=== PATIENT | male | born 1985 | race Two or more races ===

== ENCOUNTER 2023-10-03 23:52 | Emergency (ER) | payer OTHER, SELFPAY ==
[2023-10-03 23:57] VITALS: BP 186/102; PULSE 75; O2SAT 98
[2023-10-04 00:03] VITALS: BP 152/93; PULSE 75; RESP 18; TEMP 37.2; O2SAT 98; BMI 28.1
[2023-10-04] MEDS: oxyCODONE HCl Immed Release 5 MG TABLET 10 MG PO (00:19)
--- NOTE | 2023-10-04 00:30 | ED_ITS ---
HPI - General Adult General Chief complaint: Eye Problems Stated complaint: burning pain in the eye Time Seen by Provider: 10/04/23 00:02 Source: patient, RN notes reviewed and old records reviewed Mode of arrival: EMS Limitations: no limitations History of Present Illness HPI narrative: 38-year-old male presents for evaluation of bilateral eye pain. Patient reports that his eyes have been burning for the last 5 hours. 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 and the patient was trying to help the friend without using eye protection The patient admits to staring at the light from the wedding process frequently without eye protection About an hour or 2 later he developed itching to both eyes and then started to have burning pain Related Data Previous Rx's ?Medication ?Instructions ?Recorded erythromycin 5 mg/gram (0.5 %) eye 0.5 inch ophthalmic (eye) BID #3.5 10/04/23 ointment grams oxycodone 5 mg tablet 5 mg PO Q4H PRN severe pain (scale 10/04/23 score 7-10) #14 tabs Allergies Allergy/AdvReac Type Severity Reaction Status Date / Time No Known Allergies Allergy Verified 10/04/23 00:06 Review of Systems Constitutional: Constitutional: Denies body ache(s), Denies chills and Denies fever(s) Eyes: Eyes: Reports irritation and Reports eye pain (Severe burning pain) ENT: Denies sore throat Cardiovascular: Cardiovascular: Denies chest pain and Denies dyspnea Respiratory: Respiratory: Denies cough and Denies dyspnea Gastrointestinal: Gastrointestinal: Denies abdominal pain, Denies nausea and Denies vomiting Musculoskeletal: Musculoskeletal: Denies back pain PMFSH Social History Social History Advance Directives: No Advance Directives Information Provided: No Physical Exam ED Vital Signs: Vital Signs - 24 hr 10/04/23 00:03 Temperature 98.9 F Pulse Rate 75 Respiratory Rate 18 Blood Pressure 152/93 H Pulse Oximetry 98 Oxygen Delivery Method Room Air BMI result Body Mass Index 28.1 Const General: healthy appearing, comfortable, no acute distress, alert and awake Nutritional Appearance: well nourished Orientation/consciousness: patient oriented x3 HENMT Head: Yes normocephalic and Yes atraumatic Eyes Visual Aguillon: normal visual aguillon by confrontation Alignment and Position: alignment normal Periorbital: periorbital findings normal Eyelids: Yes eyelids normal Conjunctivae: conjunctival abnormal bilateral conjunctival injection diffuse; Negative for conjunctival icterus and without chemosis Corneas: corneas normal and fluorescein used (No area of increased fluorescein uptake) Pupils: Equal, round and reactive pupils present EOM: EOMs intact bilaterally Direct Ophthalmoscopy: normal light reflex and no papilledema Resp Effort & Inspection: normal respiratory effort, able to speak in complete sentences and not labored Skin General skin exam: elasticity normal Neuro General: patient oriented x3 Cranial nerves: Yes CN's II-XII intact bilaterally, Yes Equal, round and reactive pupils present and Yes Bilaterally intact EOM present Cognition (Neuro): normal cognition Extrem Other: Moving all extremities well without any obvious deformities Medications Administered Discontinued Medications Generic Name Dose Route Start Last Admin Trade Name Freq PRN Reason Stop Dose Admin Fluorescein Sodium 1 strip 10/04/23 00:05 10/04/23 00:36 Fluorescein Sodium Strip EYE-BOTH 10/04/23 00:06 Not Given ONCE ONE Oxycodone HCl 10 mg 10/04/23 00:11 10/04/23 00:19 Oxycodone Hcl Immed Release 5 Mg Tablet PO 10/04/23 00:12 10 mg ONCE ONE Administration Tetracaine HCl 1 drop 10/04/23 00:05 10/04/23 00:36 Tetracaine Hcl 0.5% Oph Amee 5 Ml Drops EYE-BOTH 10/04/23 00:06 Not Given ONCE ONE Medical Decision Making Medical Decision Making MDM Narrative: Presents complaining of severe burning eye pain, 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 His symptoms started an hour or 2 after this. This is most consistent with photo keratitis/corneal flash burn. I discussed with the patient. The importance of using eye protection at all times when around bright lights or welding. I did perform fluorescein staining and the patient has no evidence of corneal abrasion. There was no evidence of papilledema. The patient will be referred to Ophthalmology for follow-up, he was given oral oxycodone and erythromycin ointment to prevent superinfection Differential Diagnosis Differential Diagnoses: The differential diagnosis associated with the presentation includes Photo keratitis Corneal flash burn Conjunctivitis Corneal abrasion Foreign body Discharge Plan Discharge Clinical Impression: Photokeratitis of both eyes Patient Disposition: Home, Self-Care Instructions: Corneal Flash Nice (ED) Additional Instructions: Make sure you are always wearing eye protection when you are near were around somebody that is welding Your symptoms are related to portal keratitis or corneal flash nice. This is caused from looking at bright light without wearing eye protection, such as welding. It is important that you call Ophthalmology, Dr. Sloan tomorrow morning to schedule an appointment for follow-up Use erythromycin ointment twice daily for the next 3 days This will help with your burning pain a little bit but will also prevent superimposed infection You may use ibuprofen/Tylenol for pain Use oxycodone for more severe breakthrough pain This may make you sleepy, do not drink alcohol or drive after taking Prescriptions: New erythromycin 5 mg/gram (0.5 %) ointment 0.5 inch ophthalmic (eye) BID Qty: 3.5 0RF oxycodone 5 mg tablet 5 mg PO Q4H PRN (Reason: severe pain (scale score 7-10)) Qty: 14 0RF Rx Instructions: Partial Fill upon patient request. Referrals: Joshua Sloan [Physician] - (Photokeratitis from welding) Stand Alone Forms: Work/School Release Print Language: Malaysian
== END 2023-10-04 01:24 | disposition home or self-care (01) ==
PROVIDERS: Emergency Provider Emergency Medicine; PCP Internal Medicine
DX: H16.133 Photokeratitis, bilateral (principal); H57.13 Ocular pain, bilateral
CPT/HCPCS: 99282; 99283

== ENCOUNTER 2023-12-13 08:37 | Emergency (ER) | payer OTHER, SELFPAY ==
--- NOTE | ~2023-12-13 | XR_ITS ---
EXAMINATION: XR ANKLE, RIGHT CLINICAL INFORMATION: Question fracture pain fall COMPARISON: None available. TECHNIQUE: AP, lateral, and mortise views of the right ankle. FINDINGS: No acute visible fracture or dislocation. Ankle mortise is symmetric. Joint space alignment are maintained. Small ankle joint effusion. Slight soft tissue prominence along the lateral ankle. XR/XR ankle RT min 3V IMPRESSION: 1. No acute visible fracture or dislocation. 2. Small ankle joint effusion. 3. Slight soft tissue prominence along the lateral ankle.
[2023-12-13 09:00] VITALS: BP 145/90; PULSE 75; RESP 18; TEMP 36.6; O2SAT 98; BMI 27.7
--- NOTE | 2023-12-13 10:17 | ED_ITS ---
HPI - Extremity Injury (Lower) General Chief Complaint: Extremity Injury, Lower Stated Complaint: R ankle injury Time Seen by Provider: 12/13/23 10:02 Source: patient Mode of arrival: ambulatory Limitations: no limitations History of Present Illness ED Provider: Magda Mehta PA-C HPI Narrative: 38 year old male presents to the ER for evaluation of right ankle pain and swelling after he twisted it while walking down the stairs Yesterday at 15:00. He reports he twisted the ankle, has had pain walking on it since. Last night he used warm Epsom salt soak and a wrap so the swelling was better today but the pain was worse. He tried to go to work but was unable to comfortably ambulate on his feet so he came to the ER for evaluation. He reports the pain is radiating from the ankle up into the hip as he has walking with a limp. denies any numbness or tingling in his feet. MD complaint: ankle injury Onset (ago): day(s) (1) Type of Injury: inversion Place: home Severity: moderate Severity scale (1-10): 7 Relieving factors: immobilization and rest Exacerbating factors: weight bearing, movement and palpation Context: walking Associated symptoms: able to partially bear weight Other symptoms: none Treatments prior to arrival: bandage Related Data Previous Rx's ?Medication ?Instructions ?Recorded erythromycin 5 mg/gram (0.5 %) eye 0.5 inch ophthalmic (eye) BID #3.5 10/04/23 ointment grams oxycodone 5 mg tablet 5 mg PO Q4H PRN severe pain (scale 10/04/23 score 7-10) #14 tabs ibuprofen 600 mg tablet 600 mg PO TID PRN pain #20 tabs 12/13/23 Allergies Allergy/AdvReac Type Severity Reaction Status Date / Time No Known Allergies Allergy Verified 12/13/23 09:03 Review of Systems Review of Systems: Yes all other systems are reviewed and are negative PMFSH Social History Social History Advance Directives: No Advance Directives Information Provided: No Physical Exam Vital Signs: Vital Signs: Last Vital Signs Temp 97.9 F 12/13/23 09:00 Pulse 75 12/13/23 09:00 Resp 18 12/13/23 09:00 BP 145/90 H 12/13/23 09:00 Pulse Ox 98 12/13/23 09:00 O2 Del Method Room Air 12/13/23 09:00 BMI result Body Mass Index 27.7 Appearance: Alert. Oriented X3. No acute distress. HEENT: normal inspection CVS: Normal heart rate and rhythm. Pulses normal. Respiratory: No respiratory distress. Skin: Skin warm and dry. Normal skin color. Normal skin turgor. No rashes. Extremities: Mild swelling of the right lateral ankle with tenderness. Limited flexion and dorsiflexion due to pain. No ecchymosis or gross deformities. Foot is warm and well perfused, neurovascular intact. Neuro: Oriented X 3. No motor deficit. No sensory deficit. Slight limp with ambulation Medical Decision Making Medical Decision Making MDM Narrative: 38-year-old male presents to the ER for evaluation of right ankle pain after he twisted it while walking down the stairs yesterday. He has been able to ambulate but with some discomfort. Exam with mild lateral swelling and tenderness, some limited range of motion due to discomfort. X-rays performed does not show any acute fractures. Ankle was placed in Olvin wrap for compression and support, provided crutches per request. We discussed ankle sprain management including rest, ice, elevation and compression. Treatment for pain with Tylenol and ibuprofen. Stable for discharge home. Differential Diagnosis Differential Diagnoses: The differential diagnosis associated with the presentation includes ankle fracture, ankle sprain, ankle strain, ankle contusion Independent Interpretation I performed an independent interpretation of an: Plain X-Ray Interpretation: no appreciated fx, agree w/ read Radiology Impression Discussion of test interpretation with radiology: I have reviewed the radiologist's reading. Radiologist Impression: EXAMINATION: XR ANKLE, RIGHT CLINICAL INFORMATION: Question fracture pain fall COMPARISON: None available. TECHNIQUE: AP, lateral, and mortise views of the right ankle. FINDINGS: No acute visible fracture or dislocation. Ankle mortise is symmetric. Joint space alignment are maintained. Small ankle joint effusion. Slight soft tissue prominence along the lateral ankle. XR/XR ankle RT min 3V IMPRESSION: 1. No acute visible fracture or dislocation. 2. Small ankle joint effusion. 3. Slight soft tissue prominence along the lateral ankle. Prescription Management I considered prescription management with: Pain Medication Critical Care Time Critical Care Time Critical Care Time: No Discharge Plan Discharge Clinical Impression: Ankle sprain and strain Patient Disposition: Home, Self-Care Instructions: Ankle Sprain (DC) Additional Instructions: Your x-ray today did not show any broken bones. Rest your ankle and elevate your foot when possible. Recommend OLVIN wrap for support and compression. Use ice several times per day for the next 48 hours. You may bear weight as tolerated. If pain is too severe, use crutches until better. Take Motrin and/or Tylenol as needed for pain. Follow up with your doctor as needed. Prescriptions: New ibuprofen 600 mg tablet 600 mg PO TID PRN (Reason: pain) Qty: 20 0RF No Action erythromycin 5 mg/gram (0.5 %) ointment 0.5 inch ophthalmic (eye) BID Qty: 3.5 0RF oxycodone 5 mg tablet 5 mg PO Q4H PRN (Reason: severe pain (scale score 7-10)) Qty: 14 0RF Rx Instructions: Partial Fill upon patient request. Stand Alone Forms: Work/School Release Print Language: Greenlandic
[2023-12-13 11:04] VITALS: BP 141/101; PULSE 65; RESP 16; TEMP 37; O2SAT 98
[2023-12-13 11:18] VITALS: BP 141/101; PULSE 65; RESP 16; TEMP 37; O2SAT 98
== END 2023-12-13 11:19 | disposition home or self-care (01) ==
PROVIDERS: Emergency Provider Emergency Medicine
DX: S93.401A Sprain of unspecified ligament of right ankle, initial encounter (principal); S96.911A Strain of unspecified muscle and tendon at ankle and foot level, right foot, initial encounter; X50.1XXA Overexertion from prolonged static or awkward postures, initial encounter; M25.471 Effusion, right ankle; Y93.89 Activity, other specified; Y92.9 Unspecified place or not applicable; Y99.9 Unspecified external cause status
CPT/HCPCS: 73610; 99283

== ENCOUNTER → 2024-02-17 14:55 | Outpatient (BNVA) | payer SELFPAY | PROVIDERS: Visit Provider Physician Assistant Medical | DX: Z02.79 Encounter for issue of other medical certificate (principal) ==